=== PATIENT | male | born 1960 | race Caucasian/White ===

== ENCOUNTER 2016-09-26 06:56 | Emergency (ER) | payer OTHER ==
[2016-09-26 07:38] LABS: BASOPHILS 0.6 % (0-2); HEMATOCRIT 48.1 % (42.0-54.0); HEMOGLOBIN 16.6 g/dL (13.5-17.5); IMMATURE GRANULOCYTES 0.6 % (0-5); LYMPHOCYTES 19.1 % (15-50); MCH 29.3 pg (26.0-34.0); MCHC 34.5 g/dL (31.0-37.0); MCV 84.8 fL (80.0-100.0); MEAN PLATELET VOLUME 11.8 fL (7.4-10.4); MONOCYTES 6.6 % (2-11); NEUTROPHILS 70.1 % (40-80); PLATELET COUNT 176 10x3/uL (130-400); RBC 5.67 10x6/uL (4.20-6.10); RDW 13.4 % (11.5-14.5); WBC 6.2 10x3/uL (4.8-10.8)
[2016-09-26 07:44] LABS: HCG SERUM NEGATIVE
[2016-09-26 08:02] LABS: APPEARANCE CLEAR (CLEAR); BILIRUBIN NEGATIVE (NEGATIVE); COLOR YELLOW (YELLOW); GLUCOSE 1000 mg/dL (NEGATIVE); KETONE NEGATIVE (NEGATIVE); LEUKOCYTE ESTERASE NEGATIVE (NEGATIVE); NITRITE NEGATIVE (NEGATIVE); PROTEIN NEGATIVE (NEGATIVE); UROBILINOGEN NORMAL (NORMAL)
[2016-09-26 08:04] LABS: ANION GAP 6.4 mmol/L (8-16); CALCIUM 8.4 mg/dL (8.5-10.1); CREATININE - SERUM 1.1 mg/dL (0.6-1.3); POTASSIUM - SERUM 3.4 mmol/L (3.5-5.1)
[2016-09-26 08:09] LABS: BACTERIA FEW /hpf (NONE SEEN); EPITHELIAL CELLS OCC /hpf (0-5); MUCUS >1+ /lpf (NONE SEEN); WHITE CELLS - URINE OCC /hpf (0-5)
[2016-09-26 08:10] LABS: HYALINE CAST OCC /lpf (NONE SEEN)
== END 2016-09-26 08:42 | disposition home or self-care (01) ==
LOC: D.ER 06:56
PROVIDERS: Emergency Medicine
DX: E11.65 Type 2 diabetes mellitus with hyperglycemia (principal); E87.1 Hypo-osmolality and hyponatremia; N20.1 Calculus of ureter; B19.20 Unspecified viral hepatitis C without hepatic coma; F17.200 Nicotine dependence, unspecified, uncomplicated

== ENCOUNTER 2017-03-26 14:24 | Emergency (ER) | payer OTHER ==
[2017-03-26 14:51] LABS: APPEARANCE CLEAR (CLEAR); BACTERIA FEW /hpf (NONE SEEN); BILIRUBIN NEGATIVE (NEGATIVE); COLOR YELLOW (YELLOW); GLUCOSE NEGATIVE (NEGATIVE); KETONE NEGATIVE (NEGATIVE); NITRITE NEGATIVE (NEGATIVE); PROTEIN NEGATIVE (NEGATIVE); SPECIFIC GRAVITY 1.025 (1.005-1.020); UROBILINOGEN NORMAL (NORMAL); WHITE CELLS - URINE 0-5 /hpf (0-5)
[2017-03-26 16:11] LABS: BASOPHILS 0.3 % (0-2); EOSINOPHILS 1.5 % (0-7); HEMATOCRIT 46.4 % (42.0-54.0); HEMOGLOBIN 15.6 g/dL (13.5-17.5); IMMATURE GRANULOCYTES 0.3 % (0-5); LYMPHOCYTES 16.6 % (15-50); MCH 28.3 pg (26.0-34.0); MCHC 33.6 g/dL (31.0-37.0); MCV 84.1 fL (80.0-100.0); MEAN PLATELET VOLUME 10.3 fL (7.4-10.4); MONOCYTES 10.2 % (2-11); NEUTROPHILS 71.1 % (40-80); PLATELET COUNT 159 10x3/uL (130-400); RBC 5.52 10x6/uL (4.20-6.10); RDW 12.9 % (11.5-14.5); WBC 7.9 10x3/uL (4.8-10.8)
[2017-03-26 16:17] LABS: ALBUMIN 4.1 g/dL (3.4-5.0); ANION GAP 15.2 mmol/L (8-16); BILIRUBIN - TOTAL 0.31 mg/dL (0.2-1.3); CALCIUM 9.1 mg/dL (8.5-10.1); CARBON DIOXIDE 26.7 mmol/L (21.0-32.0); CREATININE - SERUM 1.2 mg/dL (0.6-1.3); POTASSIUM - SERUM 3.9 mmol/L (3.5-5.1); PROTEIN - SERUM 7.2 g/dL (6.4-8.2)
== END 2017-03-26 17:10 | disposition home or self-care (01) ==
LOC: D.ER 14:24
PROVIDERS: Emergency Medicine; Physician Assistant Medical
DX: N20.1 Calculus of ureter (principal); E11.9 Type 2 diabetes mellitus without complications; B19.20 Unspecified viral hepatitis C without hepatic coma; F17.200 Nicotine dependence, unspecified, uncomplicated

== ENCOUNTER → 2017-06-03 12:58 | Outpatient (CLI) | payer OTHER | END | disposition home or self-care (01) | LOC: D.MRI 05-28 10:00 | DX: M75.42 Impingement syndrome of left shoulder (principal) ==

== ENCOUNTER 2019-01-13 15:51 | Emergency (ER) | payer OTHER ==
[~2019-01-13] VITALS: Ht 177.8 cm; Wt 93.6 kg
[2019-01-13 15:57] VITALS: Ht 177.8 cm; Wt 93.6 kg
[2019-01-13] MEDS ORDERED: ZESTRIL10 MG PO (16:00)
[2019-01-13 16:29] LABS: APPEARANCE HAZY (CLEAR); BILIRUBIN NEGATIVE (NEGATIVE); COLOR YELLOW (YELLOW); GLUCOSE NEGATIVE (NEGATIVE); KETONE NEGATIVE (NEGATIVE); NITRITE NEGATIVE (NEGATIVE); PROTEIN TRACE mg/dL (NEGATIVE); UROBILINOGEN NORMAL (NORMAL)
[2019-01-13 16:32] LABS: BACTERIA FEW /hpf (NEGATIVE); RED CELLS - URINE >50 /hpf (0-5); WHITE CELLS - URINE 0-5 /hpf (NEGATIVE)
[2019-01-13 16:55] LABS: CALC OSMOLALITY 283 mosm/kg (275-300); CARBON DIOXIDE 29.4 mmol/L (21.0-32.0); CHLORIDE - SERUM 105 mmol/L (98-107); CREATININE - SERUM 0.8 mg/dL (0.6-1.3); GLUCOSE 100 mg/dL (74-106); POTASSIUM - SERUM 4.1 mmol/L (3.5-5.1); SODIUM 141 mmol/L (136-145); UREA NITROGEN 21 mg/dL (7-18); eGFR NON AFRICAN AMERICAN > 90 mL/min (90-120)
[2019-01-13 17:01] LABS: ALBUMIN 3.9 g/dL (3.4-5.0); ALKALINE PHOSPHATASE 87 U/L (46-116); ALT (SGPT) 41 U/L (10-68); AMYLASE - SERUM 46 U/L (25-115); BILIRUBIN - TOTAL 0.25 mg/dL (0.2-1.3); LIPASE 112 U/L (73-393); PROTEIN - SERUM 7.5 g/dL (6.4-8.2)
[2019-01-13 17:03] LABS: BASOPHILS 0.2 % (0-2); EOSINOPHILS 1.1 % (0-7); HEMATOCRIT 45.5 % (42.0-54.0); HEMOGLOBIN 15.2 g/dL (13.5-17.5); IMMATURE GRANULOCYTES 0.4 % (0-5); LYMPHOCYTES 19.4 % (15-50); MCHC 33.4 g/dL (31.0-37.0); MCV 83.8 fL (80.0-100.0); MEAN PLATELET VOLUME 10.5 fL (7.4-10.4); MONOCYTES 10.1 % (2-11); NEUTROPHILS 68.8 % (40-80); PLATELET COUNT 236 10x3/uL (130-400); RBC 5.43 10x6/uL (4.20-6.10); RDW 13.8 % (11.5-14.5); WBC 11.2 10x3/uL (4.8-10.8)
[2019-01-13] MEDS ORDERED: HYDROCODON-ACE1 EA10 PO (20:10)
[2019-01-13] MEDS ORDERED: FLOMAX0.4 MG PO (20:10)
[2019-01-13] MEDS ORDERED: ZOFRAN4 MG PO (20:10)
[2019-01-13 20:27] VITALS: BP 144/93
[2019-02-03 14:58] VITALS: Ht 177.8 cm; Wt 93.6 kg
== END 2019-01-13 20:27 | disposition home or self-care (01) ==
LOC: D.ER 15:51 → EDSEX 15:51 → D.ER 20:27
PROVIDERS: Family Medicine
DX: N20.1 Calculus of ureter (principal); I10 Essential (primary) hypertension; F17.210 Nicotine dependence, cigarettes, uncomplicated

== ENCOUNTER 2019-01-20 10:40 | Day surgery (SDC) | payer OTHER ==
[~2019-01-20] VITALS: Ht 177.8 cm; Wt 93.4 kg
[~2019-01-20 10:40] MED LIST: FLOMAX0.4 MG PO; HYDROCODON-ACE1 EA10 PO; ZESTRIL10 MG PO; ZOFRAN4 MG PO
[2019-01-20 11:16] LABS: HEMATOCRIT 47.9 % (42.0-54.0); HEMOGLOBIN 15.9 g/dL (13.5-17.5); MCH 27.5 pg (26.0-34.0); MCHC 33.2 g/dL (31.0-37.0); MCV 82.9 fL (80.0-100.0); RBC 5.78 10x6/uL (4.20-6.10); RDW 14.2 % (11.5-14.5); WBC 8.7 10x3/uL (4.8-10.8)
[2019-01-20 11:47] VITALS: BP 148/104; Ht 177.8 cm; Wt 93.4 kg
--- NOTE | 2019-01-22 16:45 | OP ---
PATIENT NAME: WINDY FERRARA MEDICAL RECORD: [id number] :62 LOCATION:[facility] ADMISSION DATE: SURGEON: DEBORAH CANSECO MD DATE OF OPERATION: 01/20/2019 SURGEON: Deborah Canseco MD. ANESTHESIA: General anesthesia by Zaid Rain CRNA. DIAGNOSIS: Right proximal ureteral 6-mm stone. PROCEDURES: Cystoscopy, right retrograde pyelogram, right ureteral stent insertion 6-South African x 26 cm with string attached. FINDINGS: Radiodense right proximal ureteral stone. Single ureteral orifices bilaterally with no bladder tumors. Nonobstructive prostate. BLOOD LOSS: None. CLINICAL HISTORY: This is a 58-year-old male who has a previous history of kidney stones. He has developed right flank pain for the past [address] scan of the abdomen and pelvis shows bilateral nonobstructive renal stones with the largest on right being 4 mm and on the left being 3 mm. There is a stone at the right UP junction, which is causing obstruction. It is 6 x 4 mm in size on the CT scan. He still continues to have pain. He comes today to have insertion of a right ureteral stent. At a later date, he will have a right lithotripsy. He is allergic to CODEINE. He was given Ance[employer] television station manager to the OR. DESCRIPTION OF PROCEDURE: The patient was extremely nervous. Due to the extreme anxiety, he was given induction of general anesthesia. He was then placed into lithotomy position and prepped and draped. Fluoroscopy was performed and a possible stone was seen, but there was a lot of overlying bowel contents, which made it difficult to be definite. Cystoscopy was then performed using a 21-South African cystoscope with 30-degree lens. Findings as outlined above. The right ureteral orifice was intubated using a 5-South African open-ended ureteral catheter. Diluted contrast was injected. There was no hydronephrosis of the ureter. However, at the UP junction, there was a filling defect, which is presumably the stone. Around it, the dye was able to go and then the renal pelvis showed some hydronephrosis. We inserted a Glidewire up through the lumen of the ureteral catheter up into the renal pelvis. The ureteral catheter was then removed, leaving the Glidewire in place. Over the Glidewire, we inserted the 6-South African x 26 cm ureteral stent. Once the stent was in correct position, the wire was withdrawn entirely. The distal end of the stent was pushed in using a pusher. The placement of the stent seems to have dislodged the stone back into the kidney. The bladder was then emptied through the cystoscope sheath, and then the scope was removed. The string on the distal end of the stent is maintained. It was tied to itself in a knot and cut shorter. The patient will be discharged home with some Flomax and Kathleen. I will see him in followup for lithotripsy. TRANSINT:[id number] Voice Confirmation ID: [id number] DOCUMENT ID: [id number] OPERATIVE REPORT [id number] WINDY FERRARA, DEBORAH Aleman MD at 1640 CC: [id number] DICTATION DATE: 01/20/19 1358 SHELL GRADER: 01/20/19 1408 [facility] 01/20/19 [facility] [address] [place] [address]
== END 2019-01-20 15:23 | disposition home or self-care (01) ==
LOC: D.OPS 10:40 → EDSEX 10:40 → D.OPS 13:00
PROVIDERS: Anesthesiology; ATTEND Urology
DX: N20.1 Calculus of ureter (principal)

== ENCOUNTER 2019-02-03 14:50 | Emergency (ER) | payer OTHER ==
[~2019-02-03] VITALS: Ht 175.3 cm; Wt 93.6 kg
[2019-02-03 14:58] VITALS: Ht 175.3 cm; Wt 93.6 kg
[2019-02-03 15:16] LABS: APPEARANCE CLEAR (CLEAR); BILIRUBIN NEGATIVE (NEGATIVE); COLOR YELLOW (YELLOW); GLUCOSE NEGATIVE (NEGATIVE); KETONE NEGATIVE (NEGATIVE); NITRITE NEGATIVE (NEGATIVE); PROTEIN NEGATIVE (NEGATIVE); SPECIFIC GRAVITY 1.015 (1.005-1.020); UROBILINOGEN NORMAL (NORMAL)
[2019-02-03 15:17] LABS: BACTERIA FEW /hpf (NEGATIVE); RED CELLS - URINE 25-50 /hpf (0-5)
[2019-02-03 15:41] LABS: BASOPHILS 0.3 % (0-2); EOSINOPHILS 1.3 % (0-7); HEMATOCRIT 44.6 % (42.0-54.0); HEMOGLOBIN 14.6 g/dL (13.5-17.5); IMMATURE GRANULOCYTES 0.3 % (0-5); LYMPHOCYTES 9.6 % (15-50); MCH 28.3 pg (26.0-34.0); MCHC 32.7 g/dL (31.0-37.0); MCV 86.4 fL (80.0-100.0); MEAN PLATELET VOLUME 9.5 fL (7.4-10.4); MONOCYTES 6.8 % (2-11); NEUTROPHILS 81.7 % (40-80); PLATELET COUNT 167 10x3/uL (130-400); RBC 5.16 10x6/uL (4.20-6.10); WBC 7.6 10x3/uL (4.8-10.8)
[2019-02-03 15:58] LABS: CALC OSMOLALITY 275 mosm/kg (275-300); CALCIUM 8.9 mg/dL (8.5-10.1); CARBON DIOXIDE 26.5 mmol/L (21.0-32.0); CHLORIDE - SERUM 101 mmol/L (98-107); GLUCOSE 134 mg/dL (74-106); POTASSIUM - SERUM 4.1 mmol/L (3.5-5.1); SODIUM 137 mmol/L (136-145); UREA NITROGEN 13 mg/dL (7-18); eGFR NON AFRICAN AMERICAN 82 mL/min (90-120)
[2019-02-03 16:13] LABS: ALBUMIN 3.4 g/dL (3.4-5.0); ALKALINE PHOSPHATASE 100 U/L (46-116); ALT (SGPT) 33 U/L (10-68); BILIRUBIN - TOTAL 0.43 mg/dL (0.2-1.3); PROTEIN - SERUM 7.3 g/dL (6.4-8.2)
[2019-02-03] MEDS ORDERED: KEFLEX500 MG PO (17:48)
[2019-02-03] MEDS ORDERED: MACROBID100 MG PO (17:48)
[2019-02-03] MEDS ORDERED: PHENAZOPYRIDIN200 MG PO (17:48)
[2019-02-03 18:49] VITALS: BP 142/86
== END 2019-02-03 18:49 | disposition home or self-care (01) ==
LOC: EDSEX 14:50 → D.ER 14:50
PROVIDERS: Family Medicine
DX: N39.0 Urinary tract infection, site not specified (principal); I10 Essential (primary) hypertension; Z72.0 Tobacco use; T81.40XA Infection following a procedure, unspecified, initial encounter; Z98.890 Other specified postprocedural states

== ENCOUNTER 2019-02-16 08:36 | Day surgery (SDC) | payer OTHER ==
[~2019-02-16] VITALS: Ht 177.8 cm; Wt 93.4 kg
[~2019-02-16 08:36] MED LIST changes: +KEFLEX500 MG PO; +MACROBID100 MG PO; +PHENAZOPYRIDIN200 MG PO; +SMZ-TMP DS 800-1 TAB PO
[2019-02-16 09:01] LABS: HEMATOCRIT 41.8 % (36.0-48.0); HEMOGLOBIN 13.8 g/dL (12-16); MEAN PLATELET VOLUME 9.1 fL (7.4-10.4); RBC 4.92 10x6/uL (4.00-5.40); RDW 13.6 % (11.5-14.5)
[2019-02-16 09:14] LABS: ALBUMIN 3.1 g/dL (3.4-5.0); ANION GAP 14.1 mmol/L (8-16); BILIRUBIN - TOTAL 0.34 mg/dL (0.2-1.3); CALCIUM 8.7 mg/dL (8.5-10.1); CARBON DIOXIDE 25.2 mmol/L (21.0-32.0); CREATININE - SERUM 1.1 mg/dL (0.6-1.3); POTASSIUM - SERUM 4.3 mmol/L (3.5-5.1); PROTEIN - SERUM 7.2 g/dL (6.4-8.2)
[2019-02-16 09:17] VITALS: BP 140/95; Ht 177.8 cm; Wt 93.4 kg
--- NOTE | 2019-02-16 13:09 | OP ---
PATIENT NAME: WINDY FERRARA MEDICAL RECORD: [id number] :62 LOCATION:[facility] ADMISSION DATE: SURGEON: DEBORAH CANSECO MD DATE OF OPERATION: 02/16/2019 SURGEON: Deborah Canseco MD ANESTHESIA: General anesthesia by Jai Paiz CRNA DIAGNOSIS: Right ureteropelvic junction stone, 6-mm. PROCEDURE: Right ESWL times 1500 shocks. FINDINGS: Radiodense right UPJ stone. ESTIMATED BLOOD LOSS: None. CLINICAL HISTORY: This is a 58-year-old male with a history of kidney stones. He developed right-sided flank pain. He had a right ureteral stent inserted. The stone is at the right UP junction. Today, he comes to have the stone treated. HE IS ALLERGIC TO CODEINE. He was given Ancef road consultant to the OR. DESCRIPTION OF PROCEDURE: The patient was placed on the treatment table. We performed fluoroscopy on him. We could see a 5-mm left renal stone, which we will have to address in the future. Going back to the right side, we could identify the stone and it was easy to target in 2 planes. He was then given induction of general anesthesia. A 1500 shocks were given to the stone. The stone was seen to have completely broken up at this point. We did not proceed any further. I will see the patient in followup in 3-4 weeks' time with a KUB. If at that time, the stone is entirely gone, then the stent can be removed. We will make arrangements at that time also to treat the right-sided 5-mm stone. TRANSINT:[id number] Voice Confirmation ID: [id number] DOCUMENT ID: [id number] DEBORAH CANSECO MD at 1309 CC: [id number] DICTATION DATE: 02/16/19 1244 PHOTONICS TECHNICIAN: 02/16/19 1302 [facility] [address] [place] [address]
== END 2019-02-16 13:48 | disposition home or self-care (01) ==
LOC: EDSEX 08:36 → D.OPS 08:36 → D.PAN 12:15 → D.OPS 12:15 → EDSEX 12:15 → D.PAN 12:45 → D.OPS 13:35
PROVIDERS: Anesthesiology; ATTEND Urology
DX: N20.1 Calculus of ureter (principal); I10 Essential (primary) hypertension; Z72.0 Tobacco use

== ENCOUNTER → 2019-03-10 08:31 | Outpatient (CLI) | payer OTHER ==
[2019-02-16 09:17] VITALS: BMI 29.6
== END | disposition home or self-care (01) ==
LOC: D.RAD 08:30
PROVIDERS: ATTEND Urology
DX: N20.1 Calculus of ureter (principal)

== ENCOUNTER → 2019-05-25 13:24 | Outpatient (CLI) | payer OTHER ==
[2019-02-16 09:17] VITALS: BMI 29.6
== END | disposition home or self-care (01) ==
LOC: D.HCCECHO 13:24
PROVIDERS: ATTEND Internal Medicine Cardiovascular Disease
DX: R07.9 Chest pain, unspecified (principal)